=== PATIENT | male | born 1940 | race Caucasian/White ===

== ENCOUNTER 2024-08-12 08:32 | Emergency (ER) | payer MEDICARE ==
[~2024-08-12] VITALS: Ht 175.2 cm; Wt 73.9 kg
[2024-08-12] MEDS ORDERED: SODIUM CHLORIDE 0.9% 500 ML IV ONE (08:40)
[2024-08-12 09:52] LABS: BASO % 0.3 % (0.0-1.0); EOS # 0.1 10*3/uL (0.0-0.4); EOS % 1.9 % (1.0-4.0); MEAN CORPUSCULAR HGB 28.6 pg (27.0-31.0); MEAN CORPUSCULAR HGB CONC 31.8 g/dl (33.0-37.0); MEAN PLATELET VOLUME 8.6 fl (9.6-12.3); MONO # 0.4 10*3/uL (0.1-1.0); MONO % 7.5 % (3.0-9.0); NEUT # 4.6 10*3/uL (2.3-7.9); NEUT % 80.4 % (47.0-73.0); PLATELET COUNT AUTOMATED 242 10*3/uL (130-400); RED BLOOD COUNT 4.89 10*6/uL (4.50-5.90); RED CELL DISTRI WIDTH 14.2 % (0-14.5); WHITE BLOOD COUNT 5.8 10*3/uL (4.8-10.8)
[2024-08-12 14:41] LABS: ALKALINE PHOSPHATASE 86 U/L (46-116); BUN 14 mg/dl (9-23); CHLORIDE 99 mmol/L (98-107); POTASSIUM 4.8 mmol/L (3.4-5.1); SGPT/ALT 15 U/L (5-49)
== END 2024-08-12 09:58 | disposition short-term general hospital (02) ==
LOC: ED 08:32
PROVIDERS: Internal Medicine
DX: K94.09 Other complications of colostomy (principal); I10 Essential (primary) hypertension; Z90.89 Acquired absence of other organs; Y83.8 Other surgical procedures as the cause of abnormal reaction of the patient, or of later complication, without mention of misadventure at the time of the procedure; Y92.89 Other specified places as the place of occurrence of the external cause